=== PATIENT | female | born 1985 | race Caucasian/White ===

== ENCOUNTER 2017-04-03 14:53 | Emergency (ER) | payer BC ==
[2017-04-03 15:01] VITALS: BP 114/69
--- NOTE | 2017-04-03 15:19 | UC ---
Throat Pain/Nasal Vivek HPI - HPI Summary HPI Summary: complaint of nasal congestion , cough that started approx 1 week ago sinus pressure headaches constant sore throat denies fever but has had chills for several days hasn't taken any medication for her symptoms takes bendryl at night without relief hasn't needed to use inhaler - History of Current Complaint Chief Complaint: UCRespiratory Stated Complaint: CHEST CONGESTION, COUGH Time Seen by Provider: 04/03/17 15:13 Hx Obtained From: Patient Hx Last Menstrual Period: 03/25/17 - Allergies/Home Medications Allergies/Adverse Reactions: Allergies Allergy/AdvReac Type Severity Reaction Status Date / Time Cefaclor [From [facility]] Allergy Severe Hives Verified 04/03/17 15:01 Penicillins Allergy Severe Hives Verified 04/03/17 15:01 PMH/Surg Hx/FS Hx/Imm Hx Previously Healthy: Yes Respiratory History: Asthma - Surgical History Surgical History: None - Family History Known Family History: Positive: Hypertension - mother Negative: Cardiac Disease, Diabetes - Social History Occupation: Employed Full-time Lives: With Family Alcohol Use: None Substance Use Type: None Smoking Status (MU): Never Smoked Tobacco Review of Systems Constitutional: Chills Skin: Negative Eyes: Negative ENT: Sore Throat, Nasal Discharge Respiratory: Cough Cardiovascular: Negative Gastrointestinal: Negative Genitourinary: Negative Motor: Negative Neurovascular: Negative Musculoskeletal: Negative Neurological: Negative Psychological: Negative All Other Systems Reviewed And Are Negative: Yes Physical Exam Triage Information Reviewed: Yes Appearance: No Pain Distress, Well-Nourished Vital Signs: Initial Vital Signs Temp 98.1 F 04/03/17 14:55 Pulse 72 04/03/17 14:55 Resp 16 04/03/17 14:55 BP 114/69 04/03/17 14:55 Pulse Ox 99 04/03/17 14:55 Vital Signs Reviewed: Yes Eyes: Positive: Conjunctiva Clear ENT: Positive: Pharyngeal erythema, Nasal congestion, TMs normal, Other: - frontal sinus pressure Neck: Positive: No Lymphadenopathy Respiratory: Positive: No respiratory distress, No accessory muscle use, Wheezing - in upper mancera Cardiovascular: Positive: RRR, No Murmur, Pulses Normal Abdomen Description: Positive: Nontender, Soft Bowel Sounds: Positive: Present Musculoskeletal: Positive: No Edema Neurological: Positive: Alert Psychological Exam: Normal Skin Exam: Normal Throat Pain/Nasal Course/Dx - Course Course Of Treatment: exam completed. will treat for asthma exacerbation -pt refuses prednisone as part of treatment - Differential Dx/Diagnosis Provider Diagnoses: asthma exacerbation Discharge - Discharge Plan Condition: Stable Disposition: HOME Prescriptions: Albuterol HFA INHALER* [Ventolin HFA Inhaler*] 2 puff INH Q4H PRN #1 mdi PRN Reason: Cough Azithromycin TAB* [Zithromax TAB (Z-LEBRON) 250 mg #6 tabs] 2 tab PO .TODAY, THEN 1 DAILY #1 [place] Patient Education Materials: Asthma (ED) Referrals: Arturo Davis MD [Primary Care Provider] - Additional Instructions: Please take antibiotic as directed Use your albuterol inhaler every 4-6 hours when needed for wheezing, shortness of breath or uncontrolled coughing. Increase fluids and rest Take acetaminophen or ibuprofen for fever or pain Please review your discharge instructions. If your symptoms do not improve please call your primary care provider or return to urgent care.
== END 2017-04-03 15:42 | disposition home or self-care (01) ==
LOC: UCCORT 14:53
DX: J45.909 Unspecified asthma, uncomplicated (principal); J45.901 Unspecified asthma with (acute) exacerbation
CPT/HCPCS: 99212; G0463

== ENCOUNTER 2017-09-17 13:11 | Emergency (ER) | payer BC ==
[2017-09-17 13:38] VITALS: BP 125/77
--- NOTE | 2017-09-17 13:47 | UC ---
Back Pain HPI - HPI Summary HPI Summary: Pt reports that she was moving a heavy TV today and felt a sudden "pop" in right lower back back and upper buttocks. that radiates across low back and down right upper leg - History of Current Complaint Chief Complaint: UCBackPain Stated Complaint: BACK INJURY Time Seen by Provider: 09/17/17 13:31 Hx Obtained From: Patient Hx Last Menstrual Period: 09/15/17 ?: No Onset/Duration: Sudden Onset, Lasting Hours Timing: Constant Severity Initially: Moderate Severity Currently: Mild Back Pain: Is Discrete @ - right lower back and upper buttock Character: Dull, Aching, Spasmodic, Stiffness Aggravating Factor(s): Movement, Bending Alleviating Factor(s): Rest, Position Associated Signs And Symptoms: Positive: Negative - Risk Factors AAA Risk Factors: Negative TAD Risk Factors: Negative Cauda Equina Risk Factors: Negative Epidural Abscess Risk Factors: Negative - Allergies/Home Medications Allergies/Adverse Reactions: Allergies Allergy/AdvReac Type Severity Reaction Status Date / Time Cefaclor [From [facility]] Allergy Severe Hives Verified 09/17/17 13:34 Penicillins Allergy Severe Hives Verified 09/17/17 13:34 PMH/Surg Hx/FS Hx/Imm Hx Previously Healthy: Yes - Surgical History Surgical History: None - Family History Known Family History: Positive: Hypertension - mother Negative: Cardiac Disease, Diabetes - Social History Occupation: Employed Full-time Lives: With Family Alcohol Use: None Substance Use Type: None Smoking Status (MU): Never Smoked Tobacco Have You Smoked in the Last Year: No - Immunization History Most Recent Influenza Vaccination: July 2017 Review of Systems Constitutional: Negative Skin: Negative Eyes: Negative ENT: Negative Respiratory: Negative Cardiovascular: Negative Gastrointestinal: Negative Genitourinary: Negative Motor: Negative Neurovascular: Negative Musculoskeletal: Arthralgia, Myalgia Neurological: Negative Psychological: Negative Is Patient Immunocompromised?: No All Other Systems Reviewed And Are Negative: Yes Physical Exam Triage Information Reviewed: Yes Appearance: Well-Appearing Vital Signs: Initial Vital Signs Temp 98.4 F 09/17/17 13:32 Pulse 76 09/17/17 13:32 Resp 16 09/17/17 13:32 BP 125/77 09/17/17 13:32 Pulse Ox 100 09/17/17 13:32 Vital Signs Reviewed: Yes ENT Exam: Normal Neck exam: Normal Respiratory Exam: Normal Cardiovascular Exam: Normal Abdominal Exam: Normal Musculoskeletal Exam: Other - point tenderness at upper/proximal right side sciatic nerve. c/o radiating pain/stiffness across low back Back Pain Course/Dx - Differential Dx/Diagnosis Differential Diagnosis/HQI/PQRI: Herniated Disc, Strain, Sprain Provider Diagnoses: low back strain Discharge - Discharge Plan Condition: Stable Disposition: HOME Prescriptions: Ibuprofen TAB* [Motrin TAB* 800 MG] 800 mg PO Q8H PRN #15 tab PRN Reason: Pain Patient Education Materials: Low Back Strain (ED), Lower Back Exercises (ED) Forms: *Work Release Referrals: Arturo Davis MD [Primary Care Provider] - 09/18/17
== END 2017-09-17 14:09 | disposition home or self-care (01) ==
LOC: UCCORT 13:11
DX: S39.012A Strain of muscle, fascia and tendon of lower back, initial encounter (principal); X50.0XXA Overexertion from strenuous movement or load, initial encounter; Y93.89 Activity, other specified; Y92.9 Unspecified place or not applicable; Z88.1 Allergy status to other antibiotic agents; Z88.0 Allergy status to penicillin
CPT/HCPCS: 99212; G0463

== ENCOUNTER 2019-08-06 14:52 | Emergency (ER) | payer BC ==
--- OUTSIDE RECORDS SUMMARY | 2019-08-06 15:03 | XMS REPORT | Continuity of Care Document ---
:1985 External Reference #:[id number] Demographics Address [address] [place] [address] Home Phone [phone] Mobile Phone [phone] Email Address Preferred Language en Marital Status Not or Anabaptist Affiliation Unknown Race White Ethnic Group Not or Author Name Eleazar Clemons CNM Address [address] [place] [address] Care Team Providers Name Role Phone Arturo Davis Care Team Information Tape Maker [phone] Problems Description No Active Problems Social History Type Date Description Comments Sex Unknown Tobacco Use Start: Unknown Never Smoked Cigarettes ETOH Use Denies alcohol use Recreational Drug Use Denies Drug Use Tobacco Use Start: Unknown Patient has never smoked Smoking Status Reviewed: 07/16/19 Patient has never smoked Exercise Type/Frequency Exercises regularly walking and hiking Seat Belt/Car Seat Always uses seat belt Allergies, Adverse Reactions, Alerts Active Allergies Reaction Severity Comments Date Penicillins Hives Severe 04/04/2019 Cefaclor Unknown reaction in childhood 04/04/2019 Medications Active Medications SIG Qnty Indications Ordering Date Provider Marta 1 by mouth every 84tabs Eleazar Clemons 04/04/2019 0.35mg Tablets day CNM Ibuprofen 200 prn menstrual Unknown 200mg cramps Tablets Benadryl Allergy prn allergy sx Unknown 25mg Capsules Iron (Ferrous t Unknown Sulfate) 142(45Fe) mg Tablets ER Multivitamin Adult Unknown Tablets Medications Administered in Office Medication SIG Qnty Indications Ordering Provider Date PT SCRN Tbco Id as Non User Eleazar Clemons CNM 07/16/2019 Injection PT SCRN Tbco Id as Non User Eleazar Clemons CNM 04/04/2019 Injection Immunizations Description No Information Available Vital Signs Date Vital Result Comment 07/16/2019 11:03am BP Systolic 116 mmHg BP Diastolic 74 mmHg Height 68 inches 5'8" Weight 206.00 lb BMI (Body Mass Index) 31.3 kg/m2 Last Menstrual Period [id number] 0 Parity 0 04/04/2019 8:41am BP Systolic 118 mmHg BP Diastolic 66 mmHg Height 68 inches 5'8" Weight 200.00 lb BMI (Body Mass Index) 30.4 kg/m2 Last Menstrual Period [id number] 0 Parity 0 Results Test Date Facility Test Result H/L Range Note Laboratory test 04/04/2019 [facility] Cytology SEE RESULT [address] [place] [address] BELOW [phone] 1 SEE RESULT BELOW Name: LAURITA MILLER : [address]: Eleazar Clemons [facility] Acct: [id number] Unit: [id number] AGE: 33 Location: [facility] Re04/04/19 SEX: F Status: REG REF SPEC: [id number] FRANCY: 04/04/[address] [facility] [address]: Eleazar Clemons [facility] REQ: [id number] RECD: 04/04/19 STATUS: SOUT _ ORDERED: TP IMAGE ANALYS, HPV/Thin Prep COMMENTS: [id number] Negative for Intraepithelial lesion or Malignancy Date Time Test Result Flag (u) Normal Range 04/04/19 0938 HPV RNA Negative Negative The high-risk HPV types detected by the assay include: 16, 18, 31, 33, 35, 39, 45, 51, 52, 56, 58, 59, 66, and 68. A. Ectocervical/Endocervical Specimen Adequacy: Satisfactory of evaluation Transformation zone component not identified Patient Information: HPV: High risk HPV RNA testing regardless of pap results. Actual Specimen Date: 04/04/19 Last Menstrual Date: 03/25/19 Spec Date if unknown: unknown ?: N Post Menopausal?: N Hysterectomy?: N Previous Abnormal Pap Smears?:N Signed by and Reported on: DEJA Hernandez (ASC) 0715 This Pap test was evaluated with the assistance of the HazelTreePrep Test Imaging System. Due to cytologic findings at the analytical consultant microscope, comprehensive manual rescreening by a Ironer Hand may be required. The Pap Smear is a screening test designed to aid in the detection of premalignant and malignant conditions of the uterine cervix. It is not a diagnostic procedure and should not be used as the sole means of detecting cervical cancer. Both false- positive and false- negative reports do occur. Depending on your risk status, a Pap smear should be obtained and evaluated every 1-3 years. END OF REPORT DEPARTMENT OF PATHOLOGY, [address] [place] [address] Jagjit Barnard M.D. 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 Follow-up PRN any questions/ concerns. RTO March 2020 for annual care Functional Status Description No Information Available Mental Status Description No Information Available Referrals Description No Information Available
[2019-08-06 15:10] VITALS: BP 123/85
--- NOTE | 2019-08-06 15:29 | UC ---
Lower Extremity/Ankle HPI - HPI Summary HPI Summary: Patient is a 33-year-old female presenting with left calf pain after she stepped off a curb while walking her dog and felt a "burst" in her calf. Patient states pain has been constant since and worse with ambulating. Describes as a throbbing pain. Denies radiating pain. Denies bruising and swelling. Denies numbness and tingling. Denies difficulty ambulating. 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[employer] and will need a note to take off work - History of Current Complaint Chief Complaint: UCLowerExtremity Stated Complaint: L LEG CALF PAIN Hx Obtained From: Patient Hx Last Menstrual Period: 07/28/19 Onset/Duration: Sudden Onset Severity Currently: Moderate Pain Intensity: 5 - Allergies/Home Medications Allergies/Adverse Reactions: Allergies Allergy/AdvReac Type Severity Reaction Status Date / Time [facility] [[facility] AdvReac Hives Verified 08/06/19 15:10 Penicillins AdvReac Hives Verified 08/06/19 15:10 Home Medications: Home Medications Norethindrone 0.35 mg PO DAILY 08/06/19 [History Confirmed 08/06/19] PMH/Surg Hx/FS Hx/Imm Hx Previously Healthy: Yes - Surgical History Surgical History: None - Family History Known Family History: Positive: Hypertension - mother Negative: Cardiac Disease, Diabetes - Social History Alcohol Use: None Substance Use Type: None Smoking Status (MU): Never Smoked Tobacco Have You Smoked in the Last Year: No - Immunization History Most Recent Influenza Vaccination: July 2017 Review of Systems All Other Systems Reviewed And Are Negative: No Respiratory: Positive: Negative Cardiovascular: Positive: Negative Gastrointestinal: Positive: Negative Musculoskeletal: Positive: Calf Tenderness, Myalgia. Negative: Arthralgia, Decreased ROM, Edema Neurological: Negative: Weakness, Paresthesia, Numbness Physical Exam Triage Information Reviewed: Yes Appearance: Well-Appearing, No Pain Distress, Well-Nourished Vital Signs: Initial Vital Signs Temp 98.8 F 08/06/19 15:06 Pulse 77 08/06/19 15:06 Resp 16 08/06/19 15:06 BP 123/85 08/06/19 15:06 Pulse Ox 100 08/06/19 15:06 Vital Signs Reviewed: Yes Eyes: Positive: Conjunctiva Clear ENT: Positive: Hearing grossly normal Neck: Positive: Supple Respiratory: Positive: No respiratory distress Cardiovascular: Positive: Pulses Normal - Strong pedal pulses bilaterally Musculoskeletal Exam: Normal Musculoskeletal: Positive: Strength Intact, ROM Intact, No Edema, Other: - Mild tenderness to palpation of the left gastrocnemius. Negative Caicedo test Neurological: Positive: Alert Psychological: Positive: Age Appropriate Behavior Skin Exam: Normal - No erythema or ecchymosis noted Lower Extremity Course/Dx - Course Course Of Treatment: Discussed probable muscle strain with patient. Instructed to continue with symptomatic treatment including rest, ice, and heat. I instructed the patient follow up with PCP if pain does not resolve within 7 days. Patient voiced understanding and agreed with the treatment plan. - Differential Dx/Diagnosis Provider Diagnosis: Strain of calf muscle Discharge ED - Sign-Out/Discharge Documenting (check all that apply): Patient Departure All imaging exams completed and their final reports reviewed: No Studies - Discharge Plan Condition: Stable Disposition: HOME Patient Education Materials: Muscle Strain (ED) Forms: *Work Release Referrals: Cecilia Baltazar PA [Primary Care Provider] - If Needed Additional Instructions: As discussed, you likely pulled a muscle in your calf. Rest and ice/heat to help relieve your pain. You may also take ibuprofen as directed for pain relief. Follow up with your PCP if symptoms persist longer than 7 days. - Billing Disposition and Condition Condition: STABLE Disposition: Home
== END 2019-08-06 15:48 | disposition home or self-care (01) ==
LOC: UCCORT 14:52
DX: S86.912A Strain of unspecified muscle(s) and tendon(s) at lower leg level, left leg, initial encounter (principal); X58.XXXA Exposure to other specified factors, initial encounter; Y93.K1 Activity, walking an animal; Y92.480 Sidewalk as the place of occurrence of the external cause; Z88.1 Allergy status to other antibiotic agents; Z88.0 Allergy status to penicillin
CPT/HCPCS: 99211; G0463